=== PATIENT | male | born 2000 | race Caucasian/White ===

== ENCOUNTER 2020-03-13 14:03 | Emergency (ER) | payer SELFPAY ==
[2020-03-13 14:05] VITALS: BP 150/76; PULSE 87; RESP 18; TEMP 36.8; O2SAT 98; BMI 23.7
--- NOTE | 2020-03-13 14:20 | ED_ITS ---
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 Says he has hemorrhoids and they are become painful and he would like to get those banded if possible would like a referral to get that taken care of. He has had these for quite a while. And he also has infected hair above his pubic area that is causing him some pain is been going on a few days. MD elicited complaint: other (Hemorrhoids and infected hair) Associated Symptoms: Denies chills, fever(s), nausea and vomiting Review of Systems Const: Denies: fever(s), chills or body aches Eyes: Denies: change in vision or blurry vision ENMT: Denies: throat pain or nasal congestion Card: Denies: chest pain or dyspnea on exertion Resp: Denies: dyspnea, productive cough or non-productive cough GI: Reports: pain on defecation, rectal pain and rectal itching; Denies: abdominal pain, nausea or vomiting : Denies: difficulty urinating Musc: Denies: extremity pain Skin/Breast: Reports: erythema (Above pubic area midline hair); Denies: rash Neuro: Denies: headache(s) Psych: Denies: anxiety or depression Michael/Lymph: Denies: easy bruising PFSH ED PFSH: Social History Smoking and tobacco status: former smoker Current gender identity: Male Physical Exam Const: COMMON NORMALS: no acute distress, average body habitus and patient oriented x3 HENMT: COMMON NORMALS: normocephalic HEAD & SCALP: normal to inspection and normocephalic FACE & SINUS: normal facial exam Eye: COMMON NORMALS: conjunctivae normal GENERAL EYE: appearance normal, both eyes and all related structures CONJUNCTIVA: Yes conjunctivae normal Neck/C-Spine: COMMON NORMALS: no JVD Chest: COMMONS NORMALS: normal inspection of the chest Resp: COMMON NORMALS: normal respiratory effort and clear to auscultation bilaterally AUSCULTATION: clear to auscultation bilaterally Cardio: COMMON NORMALS: no JVD, regular rate and regular rhythm RATE: regular rate RHYTHM: regular rhythm GI: COMMON NORMALS: Normal to inspection, nondistended, normoactive bowel sounds present Extremity: COMMON NORMALS: normal to inspection and full ROM Neuro: COMMON NORMALS: patient oriented x3 Skin: NARRATIVE SKIN EXAM: Has an infected hair follicle just right above the pubic area midline abdomen Course Vital Signs: Vital signs: Vital Signs Temperature 98.3 F 03/13/20 14:05 Pulse Rate 87 03/13/20 14:05 Respiratory Rate 18 03/13/20 14:05 Blood Pressure 150/76 03/13/20 14:05 Pulse Oximetry 98 03/13/20 14:05 Coding Level of Care Code ED Wood Turning Lathe Operator for Ashley Robertson
[2020-03-13 14:30] VITALS: BP 150/76; PULSE 90; RESP 18; O2SAT 97
--- NOTE | 2020-03-14 11:29 | DCPLANNER ---
manager strategy had message to schedule a follow up appointment for patient with general surgery. manager strategy called the clinic, spoke with Shelley, gave clinic patients information. manager strategy was told that patients information would be printed and reviewed. Clinic will call patient with appointment information.
--- NOTE | 2020-03-15 09:15 | DCPLANNER ---
Patient has a follow up appointment scheduled for Sunday, March 22, [address] at [address] Crespo. Clinic will call patient with appointment information.
--- NOTE | 2020-03-25 15:03 | DCPLANNER ---
Patient did not attend appointment scheduled for 03.22.20 with [facility].
== END 2020-03-13 14:41 | disposition home or self-care (01) ==
LOC: ER 14:39
PROVIDERS: Emergency Provider Nurse Practitioner Family
DX: R10.9 Unspecified abdominal pain (principal); Z87.891 Personal history of nicotine dependence
CPT/HCPCS: 12345; 99281

== ENCOUNTER 2020-03-16 13:09 | Emergency (ER) | payer SELFPAY ==
[2020-03-16 13:14] VITALS: BP 107/72; PULSE 90; RESP 18; TEMP 36.3; O2SAT 100; BMI 24.0
--- NOTE | 2020-03-16 13:26 | ED_ITS ---
HPI - Skin/Abscess/Foreign Bdy General: Chief complaint: Skin/Abscess/Foreign Body Stated complaint: cyst Time Seen by Provider: 03/16/20 13:18 Source: patient Mode of arrival: ambulatory Limitations: no limitations History of Present Illness: HPI narrative: Patient is a 20-year-old male who presents to ED today with complaints of an abscess to his lower abdomen that he noticed over the past few days. Patient states lesion has progressively became more painful. He states he has been able to squeeze the lesion and obtain purulent discharge. Patient has not been running fevers. He denies a history of staph or MRSA although states he had a very similar abscess to his neck a few years ago. Associated symptoms: Deny chills, fever(s), nausea or vomiting Review of Systems Const: Denies: fever(s), chills, body aches, fatigue or malaise Card: Denies: chest pain or palpitations GI: Denies: abdominal pain (except for area of abscess), nausea or vomiting Musc: Denies: neck pain, back pain or extremity pain Skin/Breast: Reports: new lesions (abscess to abdomen ) PFS ED PFSH: Social History Smoking and tobacco status: former smoker Current gender identity: Male Physical Exam 2 Const: COMMON NORMALS: no acute distress, average body habitus, patient oriented x3, no limitations, healthy appearing, alert and well nourished Resp: COMMON NORMALS: normal respiratory effort and clear to auscultation bilaterally AUSCULTATION: clear to auscultation bilaterally Cardio: COMMON NORMALS: regular rate and regular rhythm RATE: regular rate RHYTHM: regular rhythm GI: COMMON NORMALS: Normal to inspection, nondistended, normoactive bowel sounds present, Soft to palpation, non-tender, No hepatosplenomegaly present and no masses PALPATION: Yes Soft to palpation and Yes No hepatosplenomegaly present OTHER: see skin assessment Neuro: COMMON NORMALS: patient oriented x3 SENSORIUM/ORIENTATION: Yes alert Skin: OTHER: pt has a very inflamed indurated abscess to lower abdomen measuring 5x3cm; no obvious fluctuance; no surrounding cellulitis or streaking on abdomen Procedures Abscess I/D Site: abdomen Local Anesthetic: lidocaine 1% and with epi Amount of anesthesia used (mL): 4.0 Amount of fluid expressed (mL): 1.0 Irrigation: Yes Packing used?: plain Complications: other (none) Course Vital Signs: Vital signs: Vital Signs Temperature 97.4 F L 03/16/20 13:14 Pulse Rate 90 03/16/20 13:14 Respiratory Rate 18 03/16/20 13:14 Blood Pressure 107/72 03/16/20 13:14 Pulse Oximetry 100 03/16/20 13:14 Discharge Plan Discharge Patient Disposition: Home, Self-Care Clinical Impression: Abscess of skin of abdomen Condition: Stable Prescriptions: New Bactrim DS 800-160 mg tablet 1 tab PO BID 7 Days Qty: 14 RF: 0 No Action acetaminophen [Tylenol Extra Strength] 500 mg Tablet 500 - 1,000 mg PO PRN RF: 0 cephalexin [Keflex] 500 mg capsule 500 mg PO TID 7 Days Qty: 21 RF: 0 Discharge Orders: Discharge Order (Routine); Ordered 03/16/20 Ordered By: Denise Dickens Patient Instructions: Abscess Incision and Drainage (ED), Abscess (ED) Activity Restrictions/Additional Instructions: Please seek medical re-evaluation in 48-72 hours for abscess re-check. Fill and begin antibiotics immediately. Return to ED for worsening pain, redness, drainage, fevers greater than 100.4, or any other concerns you may have. Coding Level of Care Code ED Ferryboat Operator Helper for Ashley Fwd Exam Expanded Problem Focused
[2020-03-16] MEDS: ketorolac 30 mg/mL INJ IM (14:48)
[2020-03-16 23:17] VITALS: BP 124/84; PULSE 99; RESP 20; TEMP 36.7; O2SAT 96
== END 2020-03-16 15:00 | disposition home or self-care (01) ==
PROVIDERS: Emergency Provider Physician Assistant
DX: L02.211 Cutaneous abscess of abdominal wall (principal); Z87.891 Personal history of nicotine dependence
CPT/HCPCS: 10060; 12345; 87070; 87077; 87186; 87205; 96372; 96375; 99282; 99283; J1885; J2001

== ENCOUNTER → 2020-07-18 11:58 | Outpatient (BNVA) | payer SELFPAY | PROVIDERS: Visit Provider Nurse Practitioner | DX: S90.32XA Contusion of left foot, initial encounter (principal); X58.XXXA Exposure to other specified factors, initial encounter | CPT/HCPCS: 73630 ==